=== PATIENT | female | born 1995 | race African-American/Black ===

== ENCOUNTER 2017-07-18 11:07 | Inpatient (IN) ==
[2017-07-18 12:04] LABS: Basophils % 0.2 % (0.0-0.8); Eosinophils % 0.5 % (0.00-10.9); Hematocrit 28.4 VOL% (35.7-47.0); Hemoglobin 9.5 GM/DL (12.0-16.0); Immature Granulocytes % 0.4 %; Immature Granulocytes Absolute 0.02 #; Lymphocytes # 1.5 10*3/uL (1.4-4.0); Lymphocytes % 27.8 % (21.3-54.2); Mean Corpuscular HGB Conc 33.5 GM/DL (32-36); Mean Corpuscular Hemoglobin 29 PG (27-34); Mean Corpuscular Volume 87.1 FL (87-102); Mean Platelet Volume 13.4 FL (9.6-12.0); Monocytes # 0.6 10*3/uL (0.11-0.8); Monocytes % 11.5 % (1.7-12.7); Neutrophils # 3.3 10*3/uL (1.4-7.4); Neutrophils % 59.6 % (38.7-73.9); Platelet Count 124 T/CUMM (130-400); Red Blood Count 3.26 MC/CUMM (3.8-5.5); Red Cell Distribution Width 15.4 % (9.3-17.3); White Blood Count 5.5 T/CUMM (4-12)
[2017-07-18 12:18] LABS: INR 0.9; PT Patient Result 9.2 SECS; Partial Thromboplastin Time 26.7 SECS (0-40)
[2017-07-18 12:49] LABS: Alanine Aminotransferase 17 U/L (13-56); Albumin 2.5 G/DL (3.4-5.0); Alkaline Phosphatase 196 U/L (45-117); Aspartate Amino Transferase 23 U/L (0-37); Bilirubin,Direct < 0.100 MG/DL (0.0-0.20); Bilirubin,Total < 0.39 MG/DL (0.2-1.0); Blood Urea Nitrogen 11 MG/DL (7-18); Calcium 8.4 MG/DL (8.5-10.1); Glucose 66 MG/DL (74-106); Osmolality,Calculated 271.7 MOS/KG (273-304); Potassium 3.9 MMOL/L (3.5-5.1); Sodium 138 MMOL/L (136-145); Total Protein 6.4 G/DL (6.4-8.3); Uric Acid 5.2 MG/DL (2.6-6.0)
[2017-07-18 12:52] LABS: Apearance,Urine Slightly Hazy (Clear); Bacteria,Urine Occasional /HPF (Few); Bilirubin,Urine Negative (Negative); Blood, Urine Negative (Negative); Glucose,Urine (UA) Negative (Negative); Ketones,Urine Negative (Negative); Mucus,Urine Few /LPF (Occasional); Nitrite,Urine Negative (Negative); Protein,Urine 30 MG/DL; RBC,Urine 1 /HPF (0-4); Squamous Epithelial Cell,Urine Occasional /HPF (0-10); Urine Color Yellow (Yellow); Urine Specific Gravity 1.025 (1.001-1.035); Urine Urobilinogen < 2.0 EU/DL (0.2-1.0); WBC,Urine <1 /HPF (0-6)
[2017-07-18] MEDS: LACTATED RINGERS 1,000 ML IV SCH ×2 (17:15→19:39)
[2017-07-18] MEDS ORDERED: ONDANSETRON 4 MG/2 ML VIAL IV PRN (17:28)
[2017-07-18] MEDS ORDERED: BUTORPHANOL 2 MG/ML VIAL IV PRN (17:28)
[2017-07-18] MEDS ORDERED: MEPERIDINE 50 MG/1 ML VIAL IV PRN (17:28)
[2017-07-18] MEDS ORDERED: DINOPROSTONE 10 MG VAG.INSERT VAG ONE (17:28)
[2017-07-19] MEDS: LACTATED RINGERS 1,000 ML IV SCH ×2 (12:31→12:36)
[2017-07-19] MEDS ORDERED: PROMETHAZINE 25 MG/1 ML VIAL IM ONE (13:34)
[2017-07-19] MEDS ORDERED: ePHEDrine 50 MG/ML AMP IV PRN (13:34)
[2017-07-19] MEDS ORDERED: CITRIC ACID/SODIUM CITRATE 30 ML UDCUP PO ONE (13:34)
[2017-07-19] MEDS ORDERED: hydrOXYzine HCL 25 MG/1 ML VIAL IM PRN (13:34)
[2017-07-19] MEDS ORDERED: FAMOTIDINE 20 MG/2 ML VIAL IV ONE (13:34)
[2017-07-19] MEDS ORDERED: diphenhydrAMINE 50 MG/1 ML VIAL IV PRN ×2 (13:34)
[2017-07-19] MEDS ORDERED: CITRIC ACID/SODIUM CITRATE 30 ML UDCUP ONE (13:43)
[2017-07-19] MEDS ORDERED: fentaNYL 2 MCG/ROPIV 0.2% EPID 150 ML EPIDURAL SCH (14:00)
[2017-07-19 15:12] LABS: Apearance,Urine CLEAR (Clear); Bilirubin,Urine Negative (Negative); Blood, Urine Negative (Negative); Glucose,Urine (UA) Negative (Negative); Ketones,Urine Negative (Negative); Mucus,Urine Occasional /LPF (Occasional); Nitrite,Urine Negative (Negative); Protein,Urine Negative; RBC,Urine 2 /HPF (0-4); Squamous Epithelial Cell,Urine Occasional /HPF (0-10); Urine Color Straw (Yellow); Urine Specific Gravity 1.005 (1.001-1.035); Urine Urobilinogen < 2.0 EU/DL (0.2-1.0); WBC,Urine 1 /HPF (0-6)
[2017-07-19] MEDS ORDERED: OXYTOCIN/LR 20 UNIT/1,000 ML BAG IV SCH (16:30)
[2017-07-19] MEDS ORDERED: CARBOPROST TROMETHAMINE 250 MCG/ML AMP IM ONE (16:38)
[2017-07-19] MEDS ORDERED: LIDOCAINE 1% 50 ML VIAL ONE (16:38)
[2017-07-19] MEDS ORDERED: miSOPROStol 200 MCG TABLET ONE (16:38)
[2017-07-19] MEDS ORDERED: OXYTOCIN/LR 20 UNIT/1,000 ML BAG IV ONE (20:17)
[2017-07-19] MEDS ORDERED: MAGNESIUM SULF RIDER 100 ML IV ONE (20:27)
[2017-07-19] MEDS ORDERED: MAGNESIUM SULF DRIP 40 GM/1,000 ML ML IV SCH (21:00)
[2017-07-20] MEDS: LACTATED RINGERS 1,000 ML IV SCH (02:02)
[2017-07-20 06:38] LABS: Basophils % 0.2 % (0.0-0.8); Eosinophils % 0.2 % (0.00-10.9); Hematocrit 27.9 VOL% (35.7-47.0); Hemoglobin 9.3 GM/DL (12.0-16.0); Immature Granulocytes % 0.5 %; Immature Granulocytes Absolute 0.04 #; Lymphocytes # 1.6 10*3/uL (1.4-4.0); Lymphocytes % 18.7 % (21.3-54.2); Mean Corpuscular HGB Conc 33.3 GM/DL (32-36); Mean Corpuscular Hemoglobin 29 PG (27-34); Mean Corpuscular Volume 87.5 FL (87-102); Mean Platelet Volume 13.7 FL (9.6-12.0); Monocytes # 0.9 10*3/uL (0.11-0.8); Monocytes % 10.6 % (1.7-12.7); Neutrophils # 6.1 10*3/uL (1.4-7.4); Neutrophils % 69.8 % (38.7-73.9); Platelet Count 133 T/CUMM (130-400); Red Blood Count 3.19 MC/CUMM (3.8-5.5); Red Cell Distribution Width 15.5 % (9.3-17.3); White Blood Count 8.7 T/CUMM (4-12)
[2017-07-20] MEDS ORDERED: SIMETHICONE CHEW 125 MG TABLET PO PRN (09:00)
[2017-07-20] MEDS ORDERED: ACETAMINOPHEN/CODEINE 300-30 MG TABLET PO PRN (09:10)
[2017-07-20] MEDS: DOCUSATE SODIUM 100 MG CAPSULE PO SCH ×2 (09:23→20:48)
[2017-07-20] MEDS: IBUPROFEN 800 MG TABLET PO PRN ×2 (09:25→15:45)
[2017-07-21] MEDS: IBUPROFEN 800 MG TABLET PO PRN (04:18)
[2017-07-21] MEDS: DOCUSATE SODIUM 100 MG CAPSULE PO SCH (09:43)
[2017-07-21] MEDS ORDERED: BISACODYL 5 MG TABLET PO PRN (10:14)
[2017-07-21 11:14] VITALS: BP 127/89
[2017-07-21] MEDS ORDERED: DIPH/TET/ACEL PERT BOOSTER VACCINE 0.5 ML VIAL IM ONE (11:30)
[2017-07-21] MEDS ORDERED: INFLUENZA VIRUS VACCINE 0.5 ML SYRINGE IM ONE (11:30)
== END 2017-07-21 13:20 | disposition home or self-care (01) | DRG 560 ==
LOC: N.LDOUT 11:07 → N.LD 11:12 → N.OB 07-20 14:06
PROVIDERS: ADMIT Obstetrics & Gynecology; ATTEND Obstetrics & Gynecology